=== PATIENT | female | born 1960 | race Hispanic/Latino ===

== ENCOUNTER → 2018-05-23 | Outpatient (CLI) | payer OTHER | LOC: MAMMO 08:56 | PROVIDERS: ATTEND Internal Medicine | DX: Z12.31 Encounter for screening mammogram for malignant neoplasm of breast (principal) | CPT/HCPCS: 77067 ==

== ENCOUNTER 2019-01-09 19:24 | Emergency (ER) | payer OTHER ==
[~2019-01-09] VITALS: Ht 154.9 cm; Wt 93.9 kg
--- OUTSIDE RECORDS SUMMARY | 2019-01-09 19:27 | XMS REPORT ---
Author Author [facility] Organization [facility] Address Unknown Phone Unavailable Care Team Providers Care Duty Officer Name Role Phone Susu THOMPSON Unavailable Unavailable Payers Payer Name Policy Type Policy Number Effective Date Expiration Date Problems This patient has no known problems. Allergies, Adverse Reactions, Alerts Allergy Name Allergy Type Status Severity Reaction(s) Onset Date Inactive Date Treating Clinician Comments No Known Allergies DA Active U 2011-12-20 00:00:00 Medications This patient has no known medications. Encounters Start Date/Time End Date/Time Encounter Type Admission Type Attending Clinicians Care Facility Care Department Encounter ID 2018-05-26 00:00:00 2018-05-26 00:00:00 Outpatient [facility] [id number] 2018-05-07 00:00:00 2018-05-07 00:00:00 Outpatient [facility] [id number] 2018-04-18 00:00:00 2018-04-18 00:00:00 Outpatient [facility] [id number] 2018-04-10 15:24:43 2018-04-10 15:24:43 Outpatient [facility] [id number] 2018-04-10 14:03:50 2018-04-10 14:03:50 Outpatient [facility] [id number] 2018-02-27 00:00:00 2018-02-27 00:00:00 Outpatient [facility] [id number] 2017-07-04 13:07:56 2017-07-04 13:07:56 Outpatient [facility] [id number] 2017-02-22 10:57:57 2017-02-22 10:57:57 Outpatient [facility] [id number] 2017-02-22 09:25:07 2017-02-22 09:25:07 Outpatient [facility] [id number] 2017-01-17 00:00:00 2017-01-17 00:00:00 Outpatient [facility] [id number] 2017-01-14 00:00:00 2017-01-14 00:00:00 Outpatient [facility] [id number] 2016-12-24 00:00:00 2016-12-24 00:00:00 Outpatient [facility] [id number] 2016-11-27 10:41:24 2016-11-27 10:41:24 Outpatient [facility] [id number] 2016-11-09 09:36:55 2016-11-09 09:36:55 Outpatient [facility] [id number] 2016-11-09 09:18:55 2016-11-09 09:18:55 Outpatient [facility] [id number] 2016-11-08 09:12:17 2016-11-08 09:12:17 Outpatient [facility] [id number] 2016-11-07 12:48:15 2016-11-07 12:48:15 Outpatient [facility] [id number] Results Test Description Test Time Test Comments Text Results Atomic Results Result Comments BASIC METABOLIC PANEL 2019-01-09 00:44:00 SODIUM (test code=NA) 139 mmol/L 136-145 POTASSIUM (test code=K) 3.9 mmol/L 3.5-5.1 CHLORIDE (test code=CL) 104 mmol/L 101-109 CARBON DIOXIDE (test code=CO2) 25.7 mmol/L 21-32 ANION GAP (test code=GAP) 13 mmol/L 10-20 GLUCOSE (test code=GLU) 183 mg/dL 74-106 BLOOD UREA NITROGEN (test code=BUN) 11 mg/dL 3-21 GLOMERULAR FILTRATION RATE (test code=GFR) > 60 mL/min >=60 Estimated GFR by using Modified MDRD formula.Chronic kidney disease is defined as either kidney damageor GFR <60 mL/min/1.73 m2 for >3 months. CREATININE (test code=CREAT) 0.59 mg/dL 0.55-1.3 BUN/CREATININE RATIO (test code=BUN/CREA) 18.6 10-20 CALCIUM (test code=CA) 8.7 mg/dL 8.4-10.2 - CT HEAD/BRAIN W/O [id number] 00:42:00 Name: RAHEL SINGH [facility] : 1960 Age/S: 58 / F [address] Unit #: [id number] Loc: [place] [address] Phys: Neno Briscoe MD Acct: [id number] Dis Date: Status: REG ER PHONE #: [phone] Exam Date: 01/09/2019 0035 FAX #: [phone] Reason: HEADACHE SINCE YESTERDAY MORNING EXAMS: CPT CODE: [id number] CT HEAD/BRAIN W/O CONT 69351 DICTATION LOCATION: H48 HISTORY: Female, 58 years of age with HEADACHE SINCE YESTERDAY MORNING EXAM: CT BRAIN WITHOUT CONTRAST COMPARISON: Previous CT brain without contrast 01/03/2008, CT brain with contrast 01/18/2016 TECHNIQUE: Transaxial images were obtained through the brain without IV contrast. One or more of the following dose reduction techniques were used: Automated exposure control; adjustment of the mA and/or kV according to the patient size; and/or use of iterative reconstruction technique. FINDINGS: There is no acute intra-axial or extra-axial hemorrhage, mass, mass effect or midline shift. No acute loss of the cortical sharif/white junctions. No hydrocephalus. There is no acute calvarial fracture. Mild mucosal thickening seen in the left maxillary sinus. Other sinuses and mastoids are clear. IMPRESSION: 1. No acute intracranial pathology. 2. Mild left maxillary sinusitis. at 0042 Reported and signed by: Eboni Womack MD CC: Neno Del Castillo MD Technologist:Evon Josue CTDI: DLP: Trnscb Date/Time: 01/09/2019 (004) tLARISA Orig Print D/T: S: 01/09/2019 (0046) PAGE 1 Signed Report CBC W/AUTO [id number] 00:38:00* Test Item Value Reference Range Comments WHITE BLOOD CELL (test code=WBC) 9.0 K/mm3 4.5-12.5 RED BLOOD CELL (test code=RBC) 4.33 mill/mm3 3.7-5.2 HEMOGLOBIN (test code=HGB) 13.3 gram/dL 11.5-15.5 HEMATOCRIT (test code=HCT) 39.3 % 36.0-46.0 MEAN CELL VOLUME (test code=MCV) 90.8 fL 80-98 MEAN CELL HGB (test code=MCH) 30.7 picogram 27.0-33.0 MEAN CELL HGB CONCETRATION (test code=MCHC) 33.8 gram/dL 33.0-36.0 RED CELL DISTRIBUTION WIDTH (test code=RDW) 12.8 % 11.6-16.2 RED CELL DISTRIBUTION WIDTH SD (test code=RDW-SD) 43.3 fL 37.0-51.0 PLATELET COUNT (test code=PLT) 247 K/mm3 150-450 MEAN PLATELET VOLUME (test code=MPV) 10.1 fL 6.7-11.0 NEUTROPHIL % (test code=NT%) 62.2 % 39.0-69.0 LYMPHOCYTE % (test code=LY%) 30.0 % 25.0-55.0 MONOCYTE % (test code=MO%) 5.7 % 0.0-10.0 EOSINOPHIL % (test code=EO%) 1.4 % 0.0-5.0 BASOPHIL % (test code=BA%) 0.6 % 0.0-1.0 NEUTROPHIL # (test code=NT#) 5.59 K/mm3 1.8-7.7 LYMPHOCYTE # (test code=LY#) 2.70 K/mm3 1.0-5.0 MONOCYTE # (test code=MO#) 0.51 K/mm3 0-0.8 EOSINOPHIL # (test code=EO#) 0.13 K/mm3 0.0-0.5 BASOPHIL # (test code=BA#) 0.05 K/mm3 0.0-0.2 MANUAL DIFF REQUIRED (test code=MDIFF) NO COMPREHENSIVE METABOLIC [id number] 18:09:00* Test Item Value Reference Range Comments SODIUM (test code=NA) 141 mmol/L 136-145 POTASSIUM (test code=K) 3.9 mmol/L 3.5-5.1 CHLORIDE (test code=CL) 105 mmol/L 101-109 CARBON DIOXIDE (test code=CO2) 27.7 mmol/L 21-32 ANION GAP (test code=GAP) 12 mmol/L 10-20 GLUCOSE (test code=GLU) 136 mg/dL 74-106 BLOOD UREA NITROGEN (test code=BUN) 14 mg/dL 3-21 CREATININE (test code=CREAT) 0.59 mg/dL 0.55-1.3 BUN/CREATININE RATIO (test code=BUN/CREA) 23.7 10-20 TOTAL PROTEIN (test code=PROT) 7.3 g/dL 6.5-8.4 ALBUMIN (test code=ALB) 3.7 g/dL 3.4-4.8 GLOBULIN (test code=GLOB) 3.6 G/DL 1-10 ALBUMIN/GLOBULIN RATIO (test code=A/G) 1.03 RATIO 0.75-1.50 CALCIUM (test code=CA) 9.1 mg/dL 8.4-10.2 BILIRUBIN TOTAL (test code=BILT) 0.40 mg/dL 0.0-1.0 SGOT/AST (test code=AST) 52 U/L 6-32 SGPT/ALT (test code=ALT) 107 U/L 12-78 Note: Change in REFERENCE RANGE due to new reagent method. ALKALINE PHOSPHATASE TOTAL (test code=ALKP) 93 U/L 38-126 COMPREHENSIVE METABOLIC [id number] 18:02:00* Test Item Value Reference Range Comments SODIUM (test code=NA) 141 mmol/L 136-145 POTASSIUM (test code=K) 3.9 mmol/L 3.5-5.1 CHLORIDE (test code=CL) 105 mmol/L 101-109 CARBON DIOXIDE (test code=CO2) 27.7 mmol/L 21-32 ANION GAP (test code=GAP) 12 mmol/L 10-20 GLUCOSE (test code=GLU) 136 mg/dL 74-106 BLOOD UREA NITROGEN (test code=BUN) 14 mg/dL 3-21 CREATININE (test code=CREAT) 0.59 mg/dL 0.55-1.3 BUN/CREATININE RATIO (test code=BUN/CREA) 23.7 10-20 TOTAL PROTEIN (test code=PROT) gram/dL 6.4-8.2 ALBUMIN (test code=ALB) g/dL 3.4-5.0 GLOBULIN (test code=GLOB) g/dL 2.7-4.2 ALBUMIN/GLOBULIN RATIO (test code=A/G) 0.75-1.50 CALCIUM (test code=CA) 9.1 mg/dL 8.4-10.2 BILIRUBIN TOTAL (test code=BILT) mg/dL 0.2-1.2 SGOT/AST (test code=AST) IUnit/L 15-37 SGPT/ALT (test code=ALT) U/L 10-69 ALKALINE PHOSPHATASE TOTAL (test code=ALKP) IUnit/L 45-117 CBC W/AUTO [id number] 17:52:00* Test Item Value Reference Range Comments WHITE BLOOD CELL (test code=WBC) 9.2 K/mm3 4.5-12.5 RED BLOOD CELL (test code=RBC) 4.76 mill/mm3 3.7-5.2 HEMOGLOBIN (test code=HGB) 15.1 gram/dL 11.5-15.5 HEMATOCRIT (test code=HCT) 43.5 % 36.0-46.0 MEAN CELL VOLUME (test code=MCV) 91.4 fL 80-98 MEAN CELL HGB (test code=MCH) 31.7 picogram 27.0-33.0 MEAN CELL HGB CONCETRATION (test code=MCHC) 34.7 gram/dL 33.0-36.0 RED CELL DISTRIBUTION WIDTH (test code=RDW) 13.6 % 11.6-16.2 RED CELL DISTRIBUTION WIDTH SD (test code=RDW-SD) 46.3 fL 37.0-51.0 PLATELET COUNT (test code=PLT) 249 K/mm3 150-450 MEAN PLATELET VOLUME (test code=MPV) 9.9 fL 6.7-11.0 NEUTROPHIL % (test code=NT%) 55.9 % 39.0-69.0 LYMPHOCYTE % (test code=LY%) 36.9 % 25.0-55.0 MONOCYTE % (test code=MO%) 5.1 % 0.0-10.0 EOSINOPHIL % (test code=EO%) 1.4 % 0.0-5.0 BASOPHIL % (test code=BA%) 0.4 % 0.0-1.0 NEUTROPHIL # (test code=NT#) 5.15 K/mm3 1.8-7.7 LYMPHOCYTE # (test code=LY#) 3.41 K/mm3 1.0-5.0 MONOCYTE # (test code=MO#) 0.47 K/mm3 0-0.8 EOSINOPHIL # (test code=EO#) 0.13 K/mm3 0.0-0.5 BASOPHIL # (test code=BA#) 0.04 K/mm3 0.0-0.2 MANUAL DIFF REQUIRED (test code=MDIFF) NO URINALYSIS [id number] 19:11:00* Test Item Value Reference Range Comments UA COLOR (test code=COLU) YELLOW YELLOW UA APPEARANCE (test code=APPU) HAZY CLEAR UA GLUCOSE DIPSTICK (test code=DGLUU) norm mg/dL NEGATIVE UA BILIRUBIN DIPSTICK (test code=BILU) NEGATIVE mg/dL NEGATIVE UA KETONE DIPSTICK (test code=KETU) neg mg/dL NEGATIVE UA SPECIFIC GRAVITY (test code=SGU) 1.010 1.001-1.035 UA BLOOD DIPSTICK (test code=KIM) 50 (2+) Rolando/uL NEGATIVE UA PH DIPSTICK (test code=MISTY) 5.0 5.0-8.0 UA PROTEIN DIPSTICK (test code=PROU) 100 (2+) mg/dL Neg-15 UA UROBILINIOGEN DIPSTICK (test code=URO) norm mg/dL 0.0-0.2 UA NITRITE DIPSTICK (test code=RADHA) NEGATIVE NEGATIVE UA LEUKOCYTE ESTERASE DIPSTICK (test code=LEUU) 25 Laurita/uL (Trace) uL NEGATIVE UA WBC (test code=WBCU) 0-5 per HPF 0-5 IN SOME URINARY TRACT INFECTIONS THERE MAY NOT BE ENOUGHWBCs IN THE URINE TO TRIGGER AN AUTOMATIC (REFLEX) URINECULTURE. A SEPERATE ORDER FOR URINE CULTURE IS RECOMMENDEDIF THERE IS STRONG SUPPORT FOR A URINARY TRACT INFECTIONCLINICALLY. UA RBC (test code=RBCU) 0-2 per HPF 0-5 UA EPITHELIAL CELLS (test code=EPIU) Rare (0-1/hpf) per HPF Few UA BACTERIA (test code=BACU) TRACE per HPF NONE Urine Source? Clean CatchURINALYSIS [id number] 19:09:00* Test Item Value Reference Range Comments UA COLOR (test code=COLU) YELLOW YELLOW UA APPEARANCE (test code=APPU) HAZY CLEAR UA GLUCOSE DIPSTICK (test code=DGLUU) norm mg/dL NEGATIVE UA BILIRUBIN DIPSTICK (test code=BILU) NEGATIVE mg/dL NEGATIVE UA KETONE DIPSTICK (test code=KETU) neg mg/dL NEGATIVE UA SPECIFIC GRAVITY (test code=SGU) 1.010 1.001-1.035 UA BLOOD DIPSTICK (test code=KIM) 50 (2+) Rolando/uL NEGATIVE UA PH DIPSTICK (test code=MISTY) 5.0 5.0-8.0 UA PROTEIN DIPSTICK (test code=PROU) 100 (2+) mg/dL Neg-15 UA UROBILINIOGEN DIPSTICK (test code=URO) norm mg/dL 0.0-0.2 UA NITRITE DIPSTICK (test code=RADHA) NEGATIVE NEGATIVE UA LEUKOCYTE ESTERASE DIPSTICK (test code=LEUU) 25 Laurita/uL (Trace) uL NEGATIVE UA WBC (test code=WBCU) per HPF 0-5 UA RBC (test code=RBCU) per HPF 0-5 UA EPITHELIAL CELLS (test code=EPIU) per HPF Few UA BACTERIA (test code=BACU) per HPF NONE Urine Source? Clean Catch- XR CHEST 2 [id number] 16:39:00 Name: RAHEL SINGH [facility] : 1960 Age/S:58 /F [address] Unit#:[id number] Loc: [place] [address] Phys: Angel Gutierrez MD Dis Date: PHONE #: [phone] Status: REG ER FAX #: [phone] Exam Date: 08/13/2018 Reason: SOB EXAMS: CPT CODE: [id number] XR CHEST 2 V [id number] REASON FOR EXAM: SOB Exam Order Date: 08/13/2018 3:47 PM Ordering M.Madhavi: Angel Gutierrez MD PROCEDURE: - XR CHEST 2 V COMPARISON: FINDINGS: PA and lateral views of the chest show clear lungs without evidence of consolidation. No evidence of effusion. The heart size is within normal limits. Pulmonary vasculatures are unremarkable. The osseous structures are grossly intact. IMPRESSION: No active disease. at 1639 Reported and signed by: Papito Cortez M.D. CC: Angel Gutierrez MD Technologist: BIANCA NICE, RT(R),CT Trnscrpt Data: 08/13/2018 (163) Roney Orig Print D/T: S: 08/13/2018 (5770) PAGE 1 Signed Report COMPREHENSIVE METABOLIC [id number] 16:24:00* Test Item Value Reference Range Comments SODIUM (test code=NA) 138 mmol/L 135-148 POTASSIUM (test code=K) 3.8 mmol/L 3.5-5.1 CHLORIDE (test code=CL) 100 mmol/L 101-109 CARBON DIOXIDE (test code=CO2) 29.1 mmol/L 21-32 ANION GAP (test code=GAP) 13 mmol/L 10-20 GLUCOSE (test code=GLU) 182 mg/dL 74-106 BLOOD UREA NITROGEN (test code=BUN) 11 mg/dL 3-21 CREATININE (test code=CREAT) 0.70 mg/dL 0.55-1.3 BUN/CREATININE RATIO (test code=BUN/CREA) 15.7 10-20 TOTAL PROTEIN (test code=PROT) 7.8 g/dL 6.5-8.4 ALBUMIN (test code=ALB) 3.5 g/dL 3.4-4.8 GLOBULIN (test code=GLOB) 4.3 G/DL 1-10 ALBUMIN/GLOBULIN RATIO (test code=A/G) 0.8 RATIO 0.75-1.50 CALCIUM (test code=CA) 9.7 mg/dL 8.4-10.2 BILIRUBIN TOTAL (test code=BILT) 0.40 mg/dL 0.0-1.0 SGOT/AST (test code=AST) 49 U/L 6-32 SGPT/ALT (test code=ALT) 97 U/L 12-78 Note: Change in REFERENCE RANGE due to new reagent method. ALKALINE PHOSPHATASE TOTAL (test code=ALKP) 98 U/L 38-126 [id number] 16:24:00* Test Item Value Reference Range Comments TROPONIN-I (test code=TROPI) <0.015 ng/mL 0.00-0.056 B-TYPE NATRIURETIC [id number] 16:09:00* Test Item Value Reference Range Comments B-TYPE NATRIURETIC PEPTIDE (test code=BNP) 43.4 pg/mL 0-100 COMPREHENSIVE METABOLIC [id number] 16:02:00* Test Item Value Reference Range Comments SODIUM (test code=NA) 138 mmol/L 135-148 POTASSIUM (test code=K) 3.8 mmol/L 3.5-5.1 CHLORIDE (test code=CL) 100 mmol/L 101-109 CARBON DIOXIDE (test code=CO2) 29.1 mmol/L 21-32 ANION GAP (test code=GAP) 13 mmol/L 10-20 GLUCOSE (test code=GLU) 182 mg/dL 74-106 BLOOD UREA NITROGEN (test code=BUN) 11 mg/dL 3-21 CREATININE (test code=CREAT) 0.70 mg/dL 0.55-1.3 BUN/CREATININE RATIO (test code=BUN/CREA) 15.7 10-20 TOTAL PROTEIN (test code=PROT) gram/dL 6.4-8.2 ALBUMIN (test code=ALB) g/dL 3.4-5.0 GLOBULIN (test code=GLOB) g/dL 2.7-4.2 ALBUMIN/GLOBULIN RATIO (test code=A/G) 0.75-1.50 CALCIUM (test code=CA) 9.7 mg/dL 8.4-10.2 BILIRUBIN TOTAL (test code=BILT) mg/dL 0.2-1.2 SGOT/AST (test code=AST) IUnit/L 15-37 SGPT/ALT (test code=ALT) U/L 10-69 ALKALINE PHOSPHATASE TOTAL (test code=ALKP) IUnit/L 45-117 [id number] 16:02:00* Test Item Value Reference Range Comments TROPONIN-I (test code=TROPI) ng/mL 0-0.045 CBC W/AUTO [id number] 15:53:00* Test Item Value Reference Range Comments WHITE BLOOD CELL (test code=WBC) 10.3 K/mm3 4.5-12.5 RED BLOOD CELL (test code=RBC) 4.65 mill/mm3 3.7-5.2 HEMOGLOBIN (test code=HGB) 14.7 gram/dL 11.5-15.5 HEMATOCRIT (test code=HCT) 43.2 % 36.0-46.0 MEAN CELL VOLUME (test code=MCV) 92.9 fL 80-98 MEAN CELL HGB (test code=MCH) 31.6 picogram 27.0-33.0 MEAN CELL HGB CONCETRATION (test code=MCHC) 34.0 gram/dL 33.0-36.0 RED CELL DISTRIBUTION WIDTH (test code=RDW) 14.2 % 11.6-16.2 RED CELL DISTRIBUTION WIDTH SD (test code=RDW-SD) 46.8 fL 39.1-52.0 PLATELET COUNT (test code=PLT) 224 K/mm3 150-450 MEAN PLATELET VOLUME (test code=MPV) 9.8 fL 6.7-11.0 NEUTROPHIL % (test code=NT%) 62.2 % 39.0-69.0 LYMPHOCYTE % (test code=LY%) 26.9 % 25.0-55.0 MONOCYTE % (test code=MO%) 8.4 % 0.0-10.0 EOSINOPHIL % (test code=EO%) 2.0 % 0.0-5.0 BASOPHIL % (test code=BA%) 0.5 % 0.0-1.0 NEUTROPHIL # (test code=NT#) 6.41 K/mm3 1.8-7.7 LYMPHOCYTE # (test code=LY#) 2.78 K/mm3 1.0-5.0 MONOCYTE # (test code=MO#) 0.87 K/mm3 0-0.8 EOSINOPHIL # (test code=EO#) 0.21 K/mm3 0.0-0.5 BASOPHIL # (test code=BA#) 0.05 K/mm3 0.0-0.2 MANUAL DIFF REQUIRED (test code=MDIFF) NO MAMMOGRAPHY DIGITAL SCR [id number] 09:56:00 [place] [address] Patient Name: RAHEL SINGH MR #: [id number] : 1960 Age/Sex: 58/F Req #: [id number] Adm Physician: Ordered by: ANETTE THOMPSON MD Report #: [id number] Location: [facility] Room/Bed: Procedure: [id number] MG/NELLIE MOGRAPHY DIGITAL SCR BILAT Exam Date: 05/23/18 Exam Time: 929 REPORT STATUS: Signed #[id number] - [id number] #BILATERAL DIGITAL SCREENING MAMMOGRAM WITH CAD: 05/23/2018 CLINICAL: Routine screening. Comparison is made to exams ramesh ed: 02/10/2014 mammogram, 02/10/2014 ultrasound and 03/12/2013 mammogram - [facility]. Current study contains 4 films. There are scattered fibroglandular elements in both breasts. Current study was also evaluated with a Computer Aided Detection (CAD) system. There are benign calcifications in both breast s. No significant masses, calcifications, or other findings are seen in eith er breast. There has been no significant interval change. IMPRESSION: B ENIGN There is no mammographic evidence of malignancy. A 1 year screening nellie mogram is recommended. The patient will be notified by letter of the results. 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 ter letter sent: Compared to Prior B9 Mammogram BI-RADS: 2 Benign Dict ated By: FRANK PURI DO 08 COPY TO: ANETTE THOMPSON
--- OUTSIDE RECORDS SUMMARY | 2019-01-09 19:27 | XMS REPORT | Clinical Summary ---
Author Author [facility] Organization [facility] Address Unknown Phone Unavailable Care Team Providers Care Chief Yeoman Name Role Phone Preet Zamudio MD PCP Allergies No Known Allergies Medications End Date Status Medication Sig Dispensed Refills Start Date Active blood glucose (PRECISION check 2 times 50 Each XTRA TEST STRIPS) test weekly to 7 stripsIndications: Type 2 test blood diabetes mellitus with sugar. complication, without long-term current use of insulin Active lancets 28 2 times 100 Each gaugeIndications: Type 2 weekly use to 7 diabetes mellitus with check blood complication, without sugar long-term current use of insulin Active blood glucose meter For glucose. 1 Kit 0 (PRECISION XTRA 7 GLUCOMETER)Indications: Type 2 diabetes mellitus with complication, without long-term current use of insulin Active benzonatate (TESSALON Take 1 45 capsule 0 PERLES) 100 mg capsule by 7 capsuleIndications: RAD mouth 3 times (reactive airway daily as disease), mild needed for intermittent, with acute Cough. exacerbation Active Comp.Stocking,Thigh,Long, by 2 Box 0 X-Lrg MiscIndications: Misc.(Non-Kenny 7 Varicose vein of leg g; Combo Route) route For varicose veins. Active piroxicam (FELDENE) 10 mg Take 1 90 capsule 1 capsuleIndications: capsule by 7 Arthritis involving mouth daily multiple sites TAKE WITH FOOD.. Active Desloratadine (CLARINEX) Take 1 tablet 30 tablet 1 5 mg tabletIndications: by mouth 8 Chronic allergic daily. rhinitis, unspecified seasonality, unspecified trigger Active azithromycin (ZITHROMAX) Take 2 6 tablet 0 250 mg tabletIndications: tablets by 8 Upper respiratory tract mouth on the infection, unspecified first day, type then take one tablet every day for the next 4 days. Active glipiZIDE (GLUCOTROL) 5 Take 1 tablet 180 tablet 3 mg tabletIndications: by mouth 2 8 Type 2 diabetes mellitus times daily with complication, (before without long-term current meals) For use of insulin diabetes. Active metFORMIN (GLUCOPHAGE) Take 1 tablet 180 tablet 3 1,000 mg by mouth 2 8 tabletIndications: Type 2 times daily diabetes mellitus with (with meals) complication, without For diabetes. long-term current use of insulin Active cilostazol (PLETAL) 100 Take 1 tablet 180 tablet 3 mg tabletIndications: PAD by mouth 2 8 (peripheral artery times daily disease) For circulation. Active ciclesonide (ZETONNA) 37 Use 1 [place] 6.1 g 1 mcg/actuation nasal HFA in each 8 inhalerIndications: Upper nostril respiratory tract daily. infection, unspecified type Active albuterol 90 Inhale 2 20.1 g 6 mcg/actuation Puffs by 8 inhalerIndications: RAD mouth 4 times (reactive airway daily as disease), mild needed for intermittent, with acute Wheezing or exacerbation Shortness of Breath (or chest tightness). Active codeine-guaiFENesin Take 5 mL by 120 mL 0 (CHERATUSSIN AC) 10-100 mouth 3 times 8 mg/5 mL syrupIndications: daily as Upper respiratory tract needed for infection, unspecified Cough. type Active loratadine (CLARITIN) 10 Take 1 tablet 60 tablet 6 mg tabletIndications: by mouth 8 Chronic seasonal allergic daily For rhinitis allergies as needed. 04/10/2018 Discontinued albuterol (VENTOLIN Inhale 2 20.1 g 6 HFA,PROVENTIL HFA,PROAIR Puffs by 7 HFA) 90 mcg/actuation mouth 4 times inhalerIndications: RAD daily as (reactive airway needed for disease), mild Wheezing or intermittent, with acute Shortness of exacerbation, Wheezing Breath (or chest tightness). 04/10/2018 Discontinued glipiZIDE (GLUCOTROL) 5 Take 1 tablet 180 tablet 3 mg tabletIndications: by mouth 2 7 Controlled type 2 times daily diabetes mellitus without (before complication, without meals) For long-term current use of diabetes. insulin 04/10/2018 Discontinued metFORMIN (GLUCOPHAGE) Take 1 tablet 180 tablet 3 1,000 mg by mouth 2 7 tabletIndications: times daily Controlled type 2 (with meals) diabetes mellitus without For diabetes. complication, without long-term current use of insulin 04/10/2018 Discontinued cilostazol (PLETAL) 100 Take 1 tablet 180 tablet 3 mg tabletIndications: PAD by mouth 2 7 (peripheral artery times daily disease) For circulation. 04/10/2018 Discontinued loratadine (CLARITIN) 10 Take 1 tablet 60 tablet 6 mg tabletIndications: by mouth 7 Chronic seasonal allergic daily For rhinitis, unspecified allergies as trigger needed. 04/10/2018 Discontinued fluticasone (FLONASE) 50 Use 2 Sprays 16 g 3 mcg/actuation nasal in each 7 sprayIndications: Chronic nostril seasonal allergic daily. rhinitis, unspecified trigger 04/10/2018 Discontinued ciclesonide (ZETONNA) 37 Use 1 [place] 6.1 g 1 mcg/actuation nasal HFA in each 8 inhalerIndications: nostril Chronic allergic daily. rhinitis, unspecified seasonality, unspecified trigger 10/08/2018 tropicamide (MYDRIACYL) Instill 1 15 mL 0 0.5 % ophthalmic Drop in each 8 solutionIndications: Type eye once as 2 diabetes mellitus with needed for up complication, without to 1 dose long-term current use of (for poor insulin retina scan image). 04/10/2018 Discontinued codeine-guaiFENesin Take 5 mL by 120 mL 0 (CHERATUSSIN AC) 10-100 mouth 3 times 8 mg/5 mL syrupIndications: daily as Upper respiratory tract needed for infection, unspecified Cough. 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 Neck pain Encounters Care Team Description Date Type Specialty Boni Villarreal MD Type 2 diabetes mellitus with complication, without long-term current use of insulin (Primary Dx); Upper respiratory tract infection, unspecified type; PAD (peripheral artery disease); Flu vaccine need; Need for Tdap vaccination; Colon cancer screening; Breast cancer screening; RAD (reactive airway disease), mild intermittent, with acute exacerbation; Encounter for diabetic foot exam 04/10/2018 Office Visit [facility] Tian Early Jr., MD Chronic seasonal allergic rhinitis 04/10/2018 Refill [facility] Tian Early Jr., MD Controlled type 2 diabetes mellitus without complication, without long-term current use of insulin; PAD (peripheral artery disease) 04/01/2018 Refill Family Practice after 01/08/2018 Immunizations Name Administration Dates Next Due Influenza <Unspecified> 05/16/2016 Influenza Vaccine 07/09/2016 (Deferred: Other) Influenza Vaccine, 07/04/2017 (Deferred: Contraindication) Seasonal, Injectable Influenza, 04/10/2018 (Deferred: W/O Fever for 72 hours) Vaccine<FLUCELVAX>(Multi- Dose) PNEUMOCOCCAL 23-VALPS 07/09/2016 (Deferred: Patient Refused) VACCINE 25 MCG/0.5 ML INJECTION PPV 23 Pneumococcal 07/16/2016 Polysaccaride Tdap (Tetanus Toxoid, 04/10/2018 (Deferred: W/O Fever for 72 hours) Reduced Diphtheria Toxoid And Acellular Pertussis, Absorbed) Family History Medical History Relation Name Comments Alcohol/Drug Brother Cancer Maternal Stomache cancer Grandmother Diabetes Mother Relation Name Status Comments Brother Alive Maternal Grandmother Mother Social History Date Tobacco Use Types Packs/Day Years Used Quit: 06/14/1996 Former Smoker Cigarettes Smokeless Tobacco: Never Used Tobacco Cessation: Counseling Given: No Drinks/Week oz/Week Comments Alcohol Use No Food Insecurity Answer Date Recorded Within the past 12 months, you worried that your Never true 04/10/2018 food would run out before you got money to buy more. Within the past 12 months, the food you bought Never true 04/10/2018 just didn't last and you didn't have money to get more. Sex Assigned at Date Recorded Not on file Industry Job Start Date Occupation Not on file Not on file Not on file Travel End Travel History Travel Start No recent travel history available. Last Filed Vital Signs Reading Time Taken Comments Vital Sign 117/83 04/10/2018 2:04 PM WIENER PACKER Blood Pressure 99 04/10/2018 2:04 PM WIENER PACKER Pulse 37.3 C (99.2 F) 04/10/2018 2:04 PM WIENER PACKER Temperature 18 04/10/2018 2:04 PM WIENER PACKER Respiratory Rate 99% 04/10/2018 2:04 PM WIENER PACKER on room air Oxygen Saturation - - Inhaled Oxygen Concentration 95.3 kg (210 lb) 04/10/2018 2:04 PM WIENER PACKER Weight 157.5 cm (5' 2") 04/10/2018 2:04 PM WIENER PACKER Height 38.41 04/10/2018 2:04 PM WIENER PACKER Body Mass Index Plan of Treatment Health Maintenance Due Date Last Done Comments DM Microalbumin Urine 06/14/2017 06/14/2016, 05/17/2005, 12/30/2003 Scrn (Yearly) Colorectal Cancer Scrn 06/28/2017 06/28/2016 Annual (FIT/FOBT) Age 50 to 75 Breast Cancer Scrn 07/11/2017 07/11/2016 (Yearly) DM Retinal Exam (Yearly) 07/12/2017 07/12/2016 DM HGBA1C (Yearly) 02/22/2018 02/22/2017, 11/09/2016, 08/27/2016, Additional history exists IMM Influenza Seasonal 01/27/2019 05/16/2016 Oct to June (>/=19 yrs) DM Foot Exam (Yearly) 04/10/2019 04/10/2018, 02/22/2017 Cervical Cancer Scrn (3 11/09/2019 11/08/2016 Yrs) Procedures Comments Procedure Name Priority Date/Time Associated Diagnosis DIABETIC FOOT EXAM Routine 04/10/2018 Encounter for diabetic 2:48 PM WIENER PACKER foot exam after 01/08/2018 Results * DIABETIC FOOT EXAM (04/10/2018 2:48 PM WIENER PACKER) Narrative Performed At Boni Villarreal MD 04/10/20183:17 PM Diabetic Foot Exam was performed at 04/10/2018 2:59 PM.Right foot sensation is normal, right foot pulses are normal, right foot appearance is normal.Left foot sensation is normal,left foot pulses are normal, left foot appearance is normal. after 01/08/2018 Insurance Type Payer Benefit Subscriber ID Effective Phone Address Plan / Dates Group [employer]IRIN [employer] xxxxxxxxxx 2018-P [phone] [address] [place] [address] [place] [address]
[2019-01-09] MEDS ORDERED: IBUPROFEN 400 MG TAB PO STA (20:16)
--- NOTE | 2019-01-09 20:51 | Diagnostic Imaging Report ---
EXAM: PA and lateral views of the chest. COMPARISON: None CLINICAL HISTORY: ^[id number] ^2014 FINDINGS: Lines/tubes: None. Lungs: The lungs are well inflated and clear. Pleura: There is no pleural effusion or pneumothorax. Heart and mediastinum: The cardiomediastinal silhouette is normal. Bones and soft tissues: Mild multilevel degenerative changes of the thoracic spine. IMPRESSION: No acute cardiopulmonary abnormalities. Signed by: Dr. Cleo Camacho M.D. on 01/09/2019 8:47 PM
[2019-01-09] MEDS ORDERED: SODIUM CHLORIDE 0.9% 50ML 50 ML ONE (21:00)
[2019-01-09] MEDS ORDERED: IOPAMIDOL 370 MG/ML 200 ML INFUS..BTL INJ ONE (21:00)
[2019-01-09] MEDS ORDERED: IBUPROFEN 200 MG TAB ONE (21:07)
--- NOTE | 2019-01-09 21:13 | Diagnostic Imaging Report ---
History: Chest pain, headaches Comparison studies: None Technique: Axial images were obtained from the skull base to the vertex. Coronal and sagittal reconstructions obtained from the axial data. Dose modulation, iterative reconstruction, and/or weight based adjustment of the mA/kV was utilized to reduce the radiation dose to as low as reasonably achievable. Findings: Scalp/skull: No abnormalities. No fractures, blastic or lytic lesions. Extra-axial spaces: No masses. No fluid collections. Brain sulci: Appropriate for age. Ventricles: Normal in size and configuration. No hydrocephalus. Parenchyma: No abnormal densities. No masses, hemorrhage, acute or chronic cortical vascular insults. Sellar/suprasellar region: No abnormalities Craniocervical junction: Patent foramen magnum. No Chiari one malformation. IMPRESSION: No abnormalities . Signed by: DR Chad Gaona M.D. on 01/09/2019 9:10 PM
[2019-01-09] MEDS ORDERED: TRAMADOL HCL 50 MG TAB PO ONE (21:36)
[2019-01-09] MEDS ORDERED: TRAMADOL HCL 50 MG TAB ONE (21:45)
[2019-01-09] MEDS ORDERED: MORPHINE SULFATE 2 MG/ML SYR 1ML IV STA (22:44)
[2019-01-09] MEDS ORDERED: ONDANSETRON HCL INJ 2MG/ML 2ML 2 MG/ML VIAL IV STA (22:44)
[2019-01-09] MEDS ORDERED: MORPHINE SULFATE INJ 4 MG/ML INJ 1ML ONE (22:52)
[2019-01-09] MEDS ORDERED: ONDANSETRON HCL INJ 2MG/ML 2ML 2 MG/ML VIAL ONE (22:52)
--- NOTE | 2019-01-09 23:20 | Diagnostic Imaging Report ---
EXAM: CT Chest WITH contrast (PE Protocol) INDICATION: Chest pain COMPARISON: None TECHNIQUE: Chest was scanned utilizing a multidetector helical scanner from the lung apex through the level of the diaphragm after administration of IV contrast. Thin section reconstructions were obtained with special concentration on the pulmonary arteries. Coronal and sagittal reformations were obtained. Pulmonary embolism protocol was performed. IV CONTRAST: 100 mL of Isovue 370 COMPLICATIONS: None RADIATION DOSE: Total DLP: 572 mGy*cm Estimated effective dose: (DLP x 0.014 x size factor) mSv CTDIvol has been reviewed. It is below the limits set by the Radiation Protocol Committee (RPC). Dose modulation, iterative reconstruction, and/or weight based adjustment of the mA/kV was utilized to reduce the radiation dose to as low as reasonably achievable. FINDINGS: LINES/ TUBES: None. LUNGS AND AIRWAYS: No filling defect is identified within the pulmonary arteries to the segmental level. Low lung volumes with mosaic attenuation, likely related to end-expiratory scan timing. Airways are normal. PLEURA: The pleural spaces are clear. HEART AND MEDIASTINUM: The thyroid gland is normal. No mediastinal, hilar or axillary lymphadenopathy. The heart is normal in size. There is no pericardial effusion. Main pulmonary artery measures 2.8 cm in diameter, nondilated, and the ascending aorta measures 3 cm., Normal UPPER ABDOMEN: Unremarkable BONES: There are degenerative changes in the thoracic spine. SOFT TISSUES: Unremarkable. IMPRESSION: No pulmonary emboli. No acute CT abnormalities in the chest. Signed by: Eleuterio Aguayo DO on 01/09/2019 11:16 PM
[2019-01-09 23:34] VITALS: BP 122/77
[2019-01-09] MEDS ORDERED: ASPIRIN 81 MG CHEW TAB PO STA (23:45)
[2019-01-09] MEDS ORDERED: ASPIRIN 81 MG CHEW TAB ONE (23:49)
== END 2019-01-09 23:51 | disposition home or self-care (01) ==
LOC: FSED 19:24
DX: R07.89 Other chest pain (principal); R06.00 Dyspnea, unspecified; G44.211 Episodic tension-type headache, intractable; E11.9 Type 2 diabetes mellitus without complications; I73.9 Peripheral vascular disease, unspecified
CPT/HCPCS: 36415; 70450; 71046; 71260; 85651; 93005; 99284; J2270; J2405; Q9967

== ENCOUNTER 2019-01-10 12:22 | Inpatient (IN) | payer OTHER ==
[~2019-01-10] VITALS: Ht 154.9 cm; Wt 93.2 kg
--- OUTSIDE RECORDS SUMMARY | 2019-01-10 12:25 | XMS REPORT | Clinical Summary ---
Author Author [facility] Organization [facility] Address Unknown Phone Unavailable Care Team Providers Care Electronic Device Repairer Name Role Phone Preet Zamudio MD PCP [...] circulation. Active ciclesonide (ZETONNA) 37 Use 1 [place] 6.1 g 1 mcg/actuation nasal HFA in [...] 04/10/2018 Discontinued ciclesonide (ZETONNA) 37 Use 1 [place] 6.1 g 1 mcg/actuation nasal HFA in [...] for diabetic foot exam 04/10/2018 Office Visit [facility] Tian Early Jr., MD Chronic seasonal allergic rhinitis 04/10/2018 Refill [facility] Tian Early Jr., MD Controlled type 2 diabetes mellitus without complication, without long-term current use of insulin; PAD (peripheral artery disease) 04/01/2018 Refill Family Practice after 01/09/2018 Immunizations Name Administration Dates Next Due Influenza [...] Comments Vital Sign 117/83 04/10/2018 2:04 PM COMPUTER SUPPORT ANALYST Blood Pressure 99 04/10/2018 2:04 PM COMPUTER SUPPORT ANALYST Pulse 37.3 C (99.2 F) 04/10/2018 2:04 PM COMPUTER SUPPORT ANALYST Temperature 18 04/10/2018 2:04 PM COMPUTER SUPPORT ANALYST Respiratory Rate 99% 04/10/2018 2:04 PM COMPUTER SUPPORT ANALYST on room air Oxygen Saturation - - Inhaled Oxygen Concentration 95.3 kg (210 lb) 04/10/2018 2:04 PM COMPUTER SUPPORT ANALYST Weight 157.5 cm (5' 2") 04/10/2018 2:04 PM COMPUTER SUPPORT ANALYST Height 38.41 04/10/2018 2:04 PM COMPUTER SUPPORT ANALYST Body Mass Index Plan of Treatment Health [...] Routine 04/10/2018 Encounter for diabetic 2:48 PM COMPUTER SUPPORT ANALYST foot exam after 01/09/2018 Results * DIABETIC FOOT EXAM (04/10/2018 2:48 PM COMPUTER SUPPORT ANALYST) Narrative Performed At Boni Villarreal MD 04/10/20183:17 PM Diabetic Foot Exam was performed at 04/10/2018 2:59 PM.Right foot sensation is normal, right foot pulses are normal, right foot appearance is normal.Left foot sensation is normal,left foot pulses are normal, left foot appearance is normal. after 01/09/2018 Insurance Type Payer Benefit Subscriber ID Effective Phone Address Plan / Dates Group [employer]IRIN [employer] xxxxxxxxxx 2018-P [phone] [address] [facility] [address] [place] [address]
[2019-01-10] MEDS ORDERED: SODIUM CHLORIDE 0.9% 1000ML 1,000 ML IV SCH (13:15)
--- NOTE | 2019-01-10 13:41 | Diagnostic Imaging Report ---
Examination: Head CT without contrast. History: Persistent headache Comparison studies: CT head 01/09/2019 Technique: Axial images were obtained from the skull base to the vertex. Coronal and sagittal reconstructions obtained from the axial data. Dose modulation, iterative reconstruction, and/or weight based adjustment of the mA/kV was utilized to reduce the radiation dose to as low as reasonably achievable. Findings: Scalp/skull: No abnormalities. No fractures, blastic or lytic lesions. Extra-axial spaces: No masses. No fluid collections. Brain sulci: Appropriate for age. Ventricles: Normal in size and configuration. No hydrocephalus. Parenchyma: No abnormal densities. No masses, hemorrhage, acute or chronic cortical vascular insults. Sellar/suprasellar region: No abnormalities Craniocervical junction: Patent foramen magnum. No Chiari one malformation. IMPRESSION: No intracranial abnormalities, unchanged compared to head CT of 01/09/2019. The images and preliminary report provided by the neuroradiology fellow were reviewed and a final report issued by Dr. Marin neuroradiology faculty on 01/10/2019 at 4:50 PM. Signed by: Dr. Tara Hylton M.D. on 01/10/2019 4:51 PM
[2019-01-10] MEDS ORDERED: ONDANSETRON HCL INJ 2MG/ML 2ML 2 MG/ML VIAL IV ONE (14:00)
--- NOTE | 2019-01-10 14:11 | Diagnostic Imaging Report ---
EXAM: CT Abdomen and Pelvis WITHOUT contrast INDICATION: Abdominal pain COMPARISON: CT chest 01/13/2019 TECHNIQUE: Abdomen and pelvis were scanned utilizing a multidetector helical scanner from the lung base to the pubic symphysis without administration of IV contrast. Absence of intravenous contrast decreases sensitivity for detection of focal lesions and vascular pathology. Coronal and sagittal reformations were obtained. Routine protocol was performed. IV CONTRAST: None. ORAL CONTRAST: None RADIATION DOSE: Total DLP: 799.98 mGy*cm Estimated effective dose: (DLP x 0.015 x size factor) mSv COMPLICATIONS: None FINDINGS: LINES and TUBES: None. LOWER THORAX: Unremarkable HEPATOBILIARY: Hepatic steatosis. No focal hepatic lesions. No biliary ductal dilation. GALLBLADDER: Hyperdense material in gallbladder due to retained contrast from yesterday CT chest. No radio-opaque stones or sludge. No wall thickening. SPLEEN: No splenomegaly. PANCREAS: No focal masses or ductal dilatation. ADRENALS: No adrenal nodules KIDNEYS/URETERS: No hydronephrosis. No cystic or solid mass lesions. No stones. GI TRACT: No abnormal distention, wall thickening, or evidence of bowel obstruction. Mild scattered diverticulosis throughout the sigmoid colon with surrounding fat stranding, better seen on series 2, image 72, consistent with mild acute diverticulitis. No surrounding fluid collections, free air, or abscess. Appendix is normal. PELVIC ORGANS/BLADDER: Unremarkable. LYMPH NODES: No lymphadenopathy. VESSELS: Unremarkable. PERITONEUM / RETROPERITONEUM: No free air or fluid. BONES: Mild degenerative changes of the lower thoracic and upper lumbar spine. SOFT TISSUES: Unremarkable. IMPRESSION: Mild acute noncomplicated diverticulitis of the sigmoid colon. Signed by: Dr. Cleo Camacho M.D. on 01/10/2019 2:08 PM
[2019-01-10] MEDS ORDERED: KETOROLAC TROMETHAMINE 30 MG/ML VIAL IV STA (14:20)
[2019-01-10] MEDS ORDERED: PIPER-TAZ 3.375 GM 50 ML IV ONE (14:30)
[2019-01-10] MEDS ORDERED: MORPHINE SULFATE INJ 4 MG/ML INJ 1ML IV PRN ×2 (15:00→20:45)
[2019-01-10] MEDS ORDERED: PIPER-TAZ 3.375 GM 50 ML ONE (15:06)
[2019-01-10] MEDS ORDERED: KETOROLAC TROMETHAMINE 30 MG/ML VIAL ONE (15:06)
[2019-01-10] MEDS ORDERED: DEXTROSE 50% SYRINGE 50 ML IV PRN (15:15)
--- OUTSIDE RECORDS SUMMARY | 2019-01-10 15:26 | XMS REPORT | Clinical Summary ---
Author Author [facility] Organization [facility] Address Unknown Phone Unavailable Care Team Providers Care Principal Examiner Name Role Phone Preet Zamudio MD PCP [...] circulation. Active ciclesonide (ZETONNA) 37 Use 1 [place] 6.1 g 1 mcg/actuation nasal HFA in [...] 04/10/2018 Discontinued ciclesonide (ZETONNA) 37 Use 1 [place] 6.1 g 1 mcg/actuation nasal HFA in [...] for diabetic foot exam 04/10/2018 [facility] Chronic seasonal allergic rhinitis 04/10/2018 [facility]ill [facility] Tian Early Jr., MD Controlled [...] Comments Vital Sign 117/83 04/10/2018 2:04 PM PICKLING MACHINE OPERATOR Blood Pressure 99 04/10/2018 2:04 PM PICKLING MACHINE OPERATOR Pulse 37.3 C (99.2 F) 04/10/2018 2:04 PM PICKLING MACHINE OPERATOR Temperature 18 04/10/2018 2:04 PM PICKLING MACHINE OPERATOR Respiratory Rate 99% 04/10/2018 2:04 PM PICKLING MACHINE OPERATOR on room air Oxygen Saturation - - Inhaled Oxygen Concentration 95.3 kg (210 lb) 04/10/2018 2:04 PM PICKLING MACHINE OPERATOR Weight 157.5 cm (5' 2") 04/10/2018 2:04 PM PICKLING MACHINE OPERATOR Height 38.41 04/10/2018 2:04 PM PICKLING MACHINE OPERATOR Body Mass Index Plan of Treatment Health [...] Routine 04/10/2018 Encounter for diabetic 2:48 PM PICKLING MACHINE OPERATOR foot exam after 01/09/2018 Results * DIABETIC FOOT EXAM (04/10/2018 2:48 PM PICKLING MACHINE OPERATOR) Narrative Performed At Boni Villarreal MD 04/10/20183:17 PM Diabetic Foot Exam was performed at 04/10/2018 2:59 PM.Right foot sensation is normal, right foot pulses are normal, right foot appearance is normal.Left foot sensation is normal,left foot pulses are normal, left foot appearance is normal. after 01/09/2018 Insurance Type Payer Benefit Subscriber ID Effective Phone Address Plan / Dates Group SHIRIN [employer] xxxxxxxxxx 2018-P [phone] [address] [facility] [address] [place] [address]
[2019-01-10] MEDS: SODIUM CHLORIDE 0.9% 1000ML 1,000 ML IV SCH ×2 (17:12→22:58)
[2019-01-10] MEDS ORDERED: SODIUM CHLORIDE 0.9% 1000ML 1,000 ML ONE (17:15)
[2019-01-10] MEDS ORDERED: MORPHINE SULFATE INJ 4 MG/ML INJ 1ML ONE (17:17)
[2019-01-10] MEDS: INSULIN REGULAR, HUMAN 100 UNIT/1 ML 3ML VIAL SQ SCH ×2 (17:19→20:34)
--- NOTE | 2019-01-10 17:41 | NUR ---
Report called to FRANCHESKA Enriquez
--- NOTE | 2019-01-10 17:42 | NUR ---
[facility] called for transport
--- NOTE | 2019-01-10 19:45 | NUR ---
ARRIVED BY EMS STRETCHER TO ROOM 112. PT AMBULATORY TO HOSPITAL BED, PT IS AAOX3, RR EVEN AND NON-LABORED, ON ROOM AIR. PT REPORTS HEADACHE AT THIS TIME. ORIENTED PT TO HOSPITAL ROOM, CALL LIGHT, PHONE, BED CONTROLS AND LIGHTS. LEFT PT LAYING SEMI FOWLERS IN BED, BED IN LOW LOCKED POSITION, SIDE RAILS UPX2, CALL LIGHT AND PHONE WITHIN REACH.
[2019-01-10 20:00] VITALS: BP 142/74
--- NOTE | 2019-01-10 20:36 | NUR ---
MD Edy QUINTANA PAGED FOR CONSULTATION. WAITING FOR CALLBACK.
--- NOTE | 2019-01-10 20:43 | NUR ---
PAGE PLACED FOR MD GERMAIN CONCERNING CONSULTATION. WAITING FOR CALLBACK.
[2019-01-10 22:00] VITALS: BP 142/74
[2019-01-10] MEDS: METRONIDAZOLE 500MG/NS 100ML 100 ML IV SCH (22:00)
--- NOTE | 2019-01-10 22:21 | History and Physical ---
CHIEF COMPLAINT: 1. Severe headache and dizziness. 2. Abdominal pain. HISTORY OF PRESENT ILLNESS: This is a 58-year-old female with past medical history of diabetes mellitus and peripheral arterial disease, was in her usual state of health until started developing severe headache for last 3 days. No blurring of vision. No focal weakness. No seizures. Headache did not subside, so she went to the ER twice. So, the patient finally was admitted and Neuro consult was obtained with Dr. Miranda Santiago. CT of the head in the ER was negative. The patient also has some abdominal pain and constipation. The patient has a left lower quadrant abdominal pain. No chest pain. No shortness of breath. No leg pain. No leg swelling. ALLERGIES: NO KNOWN DRUG ALLERGIES. PAST MEDICAL HISTORY: Diabetes mellitus type 2 and PAD. PAST SURGICAL HISTORY: History of and left leg varicose veins surgery. SOCIAL HISTORY: The patient lives with her granddaughter in [place]. HABITS: Denies smoking. Denies alcohol use. Denies illicit drug use. MEDICATIONS: Glipizide and metformin for diabetes. FAMILY HISTORY: Noncontributory. REVIEW OF SYSTEMS: GENERAL: Denies fatigue and weakness. HEENT: No diplopia or blurred vision. CARDIOPULMONARY: No chest pain. No syncopal. ALIMENTARY SYSTEM: Has abdominal pain and constipation. No nausea. No vomiting. GENITOURINARY SYSTEM: No dysuria. No hematuria. MUSCULOSKELETAL: No joint pain. CENTRAL NERVOUS SYSTEM: No focal weakness. PHYSICAL EXAMINATION: GENERAL: This is a 58-year-old female, who is alert and oriented x3, in no gross distress. VITAL SIGNS: Temperature 97.4, pulse 60, respiratory rate 18, blood pressure 118/68. HEENT: Head is atraumatic and normocephalic. Pupils are bilaterally equal and reactive to light. Extraocular muscles are intact. NECK: Supple. No JVD. No carotid bruit. LUNGS: Clear to auscultation and percussion bilaterally. No added sounds. HEART: S1 and S2. Regular rate and rhythm. No S3, S4, or murmur. ABDOMEN: Soft. Left lower quadrant tenderness. Bowel sounds plus active. No organomegaly. No guarding. No rigidity. EXTREMITIES: No edema. Peripheral pulse +1. DIGITAL CARTOGRAPHIC TECHNICIAN: Grossly nonfocal. LABORATORY DATA: EKG shows sinus bradycardia, low voltage at [address] of abdomen and pelvis shows acute noncomplicated sigmoid diverticulitis. CT of the brain was done in the emergency room, shows no intracranial abnormality. CBC normal. BMP is normal. ASSESSMENT: 1. Acute sigmoid diverticulitis. 2. Intractable headache with dizziness. 3. History of diabetes mellitus type 2. 4. Peripheral arterial disease. PLAN: Admit the patient to telemetry and p.o. IV fluids normal saline 125 mL/hour. Cipro 400 IV q.12, Flagyl 500 IV q.8 hours. Blood sugar checkup before meals and at bedtime with sliding scale, morphine for severe headache. Case discussed with the patient and granddaughter. Condition and prognosis explained. MD AMBER Boyd/PEARL /[id number]
[2019-01-10] MEDS: CIPROFLOXACIN 400 MG/D5W 200ML 200 ML IV SCH (23:00)
[2019-01-11] VITALS (8 sets, daily range): BP systolic 110–126; BP diastolic 59–69
--- NOTE | 2019-01-11 00:40 | NUR ---
SPOKE WITH MD Edy QUINTANA CONCERNING CONSULTATION. NO NEW ORDERS AT THIS TIME.
[2019-01-11] MEDS: ONDANSETRON HCL INJ 2MG/ML 2ML 2 MG/ML VIAL IV PRN (00:57)
[2019-01-11] MEDS ORDERED: GLIPIZIDE5 MG PO (01:32)
[2019-01-11] MEDS ORDERED: METFORMIN HCL500 MG PO (01:32)
[2019-01-11] MEDS ORDERED: CILOSTAZOL100 MG PO (01:32)
[2019-01-11] MEDS: SODIUM CHLORIDE 0.9% 1000ML 1,000 ML IV SCH ×3 (05:19→23:23)
[2019-01-11] MEDS: METRONIDAZOLE 500MG/NS 100ML 100 ML IV SCH ×3 (05:56→22:45)
[2019-01-11 06:35] LABS: BASOPHILS # (AUTO) 0.1 (0.0-0.1); BASOPHILS % 0.6 % (0.0-1.0); EOSINOPHILS # (AUTO) 0.1 (0.0-0.4); EOSINOPHILS % 1.3 % (0.0-6.0); HEMATOCRIT 39.8 % (34.2-44.1); LYMPHOCYTES # (AUTO) 3.3 (1.0-3.2); LYMPHOCYTES % 36.4 % (18.0-39.1); MEAN CORPUSCULAR HEMOGLOBIN 30.2 pg (28-32); MEAN CORPUSCULAR HGB CONC 32.7 g/dL (31-35); MEAN CORPUSCULAR VOLUME 92.6 fL (81-99); MONOCYTES # (AUTO) 0.6 (0.2-0.8); MONOCYTES % 6.4 % (4.4-11.3); NEUTROPHILS # (AUTO) 4.9 (2.1-6.9); PLATELET COUNT 231 x10e3/uL (140-360); RED CELL DISTRIBUTION WIDTH 13.1 % (11.7-14.4)
[2019-01-11 06:52] LABS: ALANINE AMINOTRANSFERASE 97 IU/L (0-55); ALBUMIN 3.1 g/dL (3.5-5.0); ALKALINE PHOSPHATASE 65 IU/L (40-150); ANION GAP 10.1 mmol/L (8-16); BLOOD UREA NITROGEN 14 mg/dL (7-26); BUN/CREATININE RATIO 19 (6-25); CARBON DIOXIDE 27 mmol/L (22-29); CHLORIDE 107 mmol/L (98-107); CREATININE, SERUM 0.73 mg/dL (0.57-1.11); EST GLOMERULAR FILTRATION RATE > 60 ML/MIN (60-); GLUCOSE 143 mg/dL (74-118); POTASSIUM 4.1 mmol/L (3.5-5.1); SODIUM 140 mmol/L (136-145)
[2019-01-11] MEDS: INSULIN REGULAR, HUMAN 100 UNIT/1 ML 3ML VIAL SQ SCH ×4 (08:30→21:04)
--- NOTE | 2019-01-11 08:37 | NUR ---
MD Alden THOMPSON INTO SEE PT, DISCUSSED POC, ORDERS NOTED TO HOLD HOME MEDICATIONS AT THIS TIME
[2019-01-11] MEDS: CIPROFLOXACIN 400 MG/D5W 200ML 200 ML IV SCH ×2 (09:25→21:04)
[2019-01-11] MEDS: METHYLPREDNISOLONE SOD SUCC 125 MG/2ML VIAL IV SCH ×3 (10:30→11:35)
[2019-01-11] MEDS: PROMETHAZINE 25MG/ NS 50ML (IV) IV SCH ×2 (11:39→18:08)
[2019-01-11] MEDS: VALPROATE SOD INJ 500 MG in SODIUM CHLORIDE 0.9% 100 ML 100 ML IV SCH ×2 (12:14→18:30)
--- NOTE | 2019-01-11 13:38 | Consultation ---
DATE OF CONSULTATION: 01/11/2019 Neurology Consult Note HISTORY OF PRESENT ILLNESS: Ms. Fregoso is a 58-year-old right-hand dominant woman with past medical history significant for diabetes mellitus type 2 and peripheral arterial disease, admitted to [facility] as an inpatient for further evaluation and treatment of severe headache and diverticulitis. A Neurology consultation is requested for recommendations for further evaluation and treatment of headache. Ms. Fregoso describes her headache as follows: The pain is located across the forehead and does not radiate. The pain is described as constant pressure and is rated as 7/10. Associated with the headache are photophobia, phonophobia, nausea with vomiting, and dizziness which is further described as a lightheaded sensation. Ms. Fregoso does not report an aura or visual disturbance associated with the headache. The above-described headache has been present for 3 days. Ms. Fregoso has not experienced similar symptoms previously. The patient does not report a prior history of migraines nor is there a known family history of migraines or other primary headache disorders. In the emergency center, a CT of the brain without contrast was performed. There was no evidence of recent or remote large territorial ischemia, hemorrhage, mass, or mass effect. Other symptoms endorsed by the patient include abdominal pain. REVIEW OF SYSTEMS: Abdominal pain, nausea, vomiting, headache, photophobia, phonophobia, and dizziness. Otherwise, a 12-point review of systems is negative. PAST MEDICAL HISTORY: Diabetes mellitus type 2, peripheral arterial disease. PAST SURGICAL HISTORY: section, procedure for varicose veins. PAST HOSPITALIZATIONS: Surgeries/procedures as listed. FAMILY MEDICAL HISTORY: None reported. SOCIAL HISTORY: Ms. Fregoso is single. She works for a [employer]. The patient does not report current or prior tobacco, alcohol, or recreational drug use. HOME MEDICATIONS: Glipizide 5 mg by mouth twice daily, metformin 1000 mg by mouth twice daily, cilostazol 100 mg by mouth twice daily. HOSPITAL MEDICATIONS: Ciprofloxacin, ibuprofen, insulin human regular, ketorolac, metronidazole, morphine, Zofran, sodium chloride, tramadol. ALLERGIES: NO KNOWN DRUG ALLERGIES. NO KNOWN FOOD ALLERGIES. NO KNOWN ALLERGIES TO LATEX. NO KNOWN ALLERGIES TO IODINE OR OTHER CONTRAST MATERIALS. PHYSICAL EXAMINATION: VITAL SIGNS: Height 61 inches, weight 207 pounds, BMI 39.1 kg/m2, blood pressure 110/59 mmHg, pulse 61 beats per minute, respiratory rate 18 breaths per minute, and oxygen saturation 96% on room air. GENERAL: The patient is awake and alert, does not appear distressed. Morbidly obese. HEENT: Normocephalic, atraumatic. Pupils are equal, round, and reactive to light. Moist mucous membranes. NECK: Supple. No appreciable thyromegaly. No appreciable carotid bruits. CARDIOVASCULAR: S1, S2, regular rate and rhythm. No murmurs, rubs, or gallops. EXTREMITIES: The skin is warm and dry. No clubbing, cyanosis, or edema. The posterior tibial and dorsalis pedis pulses are 1+ and symmetric. SKIN: No rashes or lesions. NEUROLOGIC: Memory/Attention: The patient is awake and alert, oriented to person, place, time, and situation. Cranial Nerves: Cranial nerve I - not tested. Cranial nerve II, III, IV, and - pupils are equal and round, react briskly to light (from 4 mm to 2 mm). Extraocular movements intact. No nystagmus. Cranial nerve V - sensation to light touch is intact in the bilateral V1 through V3 distributions. Strength in the temporalis and masseter muscles is within normal limits. Cranial nerve VII - the face is symmetric as are all facial movements. Strength is within normal limits. Cranial nerve VIII - hearing is intact to finger rub bilaterally. Cranial nerve IX, X - the soft palate elevates equally and symmetrically. Cranial nerve XI - normal strength of the bilateral sternocleidomastoid and trapezius muscles. Cranial nerve XII - the tongue protrudes midline and moves symmetrically from [id number]. Strength: Bulk is normal. There is effort dependent weakness in all muscles examined in both arms and both legs. Strength is grossly 4/5. Tone is normal. DTRs: Deep tendon reflexes are 1+ and symmetric at the triceps, biceps, and brachioradialis. Deep tendon reflexes are trace and symmetric at the patellas. Deep tendon reflexes are absent and symmetric at the Achilles. Plantar responses are flexor bilaterally. Sensation: Sensation is intact to light touch in both arms and both legs. Cerebellar: Ldkuob-wuuo-vyueus and heel-echevarria movements are intact without dysmetria or other impairment. Gait: Deferred. Speech: Spontaneous speech is normal without appreciable dysarthria or aphasia. Repetition is intact. Involuntary movements: None. Pronator Drift: None. LABORATORY DATA: A comprehensive metabolic panel is significant for an elevated serum glucose of 143, elevated AST of 76, elevated ALT of 97, low total protein of 6.1, and low albumin of 3.1. Lipase 29. Troponin I 0.042. The CBC with differential and platelets are unremarkable. DIAGNOSTIC STUDIES: Electrocardiogram on 01/10/2019: Sinus bradycardia at 59 beats per minute with sinus arrhythmia. CT of the brain without contrast on 01/10/2019: On my review, there is no evidence of recent or remote large territorial ischemia, hemorrhage, mass, or mass effect. Cerebral volumes are appropriate for age. There are no findings suggestive of chronic small vessel ischemic disease. CT of the abdomen and pelvis without contrast on 01/10/2019: Mild acute noncomplicated diverticulitis of the sigmoid colon. ASSESSMENT AND PLAN: Ms. Fregoso is a 58-year-old right-hand dominant woman with past medical history as detailed, admitted to [facility] as an inpatient on January 10, 2019, with diverticulitis and a severe headache as described in the history of present illness. Other than effort dependent weakness in the muscles examined in the arms and legs, the patient's neurological examination is nonfocal. Her laboratory data and other diagnostic studies have been reviewed and are documented above. Ms. Fregoso has migraine without aura, not intractable, with status migrainosus. The patient will be treated with intravenous fluids and a combination of medications, which should significantly improve or resolve her headache. 1. Intravenous fluids will be continued, but the rate will be increased to 125 mL/h. 2. Promethazine 25 mg intravenously every 6 hours x2 doses will be prescribed. 3. Methylprednisolone 125 mg intravenously every 6 hours x2 doses will be prescribed. 4. Valproate 500 mg intravenously every 6 hours x2 doses will be prescribed. 5. Defer treatment of the remaining medical comorbidities to the primary and other services following the patient. Thank you for this consultation. I will continue to follow the patient while she remains in the hospital. TIME SPENT: 50 minutes. Miranda Santiago MD CP/PEARL /[id number] [facility]
[2019-01-11] MEDS ORDERED: METHYLPREDNISOLONE SOD SUCC 125 MG/2ML VIAL IV SCH (18:00)
--- NOTE | 2019-01-11 19:04 | NUR ---
WALKING ROUNDS PERFORMED, RECEIVED PT LAYING SUPINE IN BED, AAOX3, RR EVEN AND NON-LABORED, ON ROOM AIR. NO S/SX OF DISTRESS NOTED. LEFT PT LAYING SEMI FOWLERS IN BED, BED IN LOW LOCKED POSITION, SIDE RAILS UPX2, CALL LIGHT AND PHONE WITHIN REACH.
[2019-01-11] MEDS ORDERED: BISACODYL 10 MG SUPP PR ONE (23:45)
[2019-01-12] VITALS (9 sets, daily range): BP systolic 110–153; BP diastolic 57–81
[2019-01-12] MEDS: METRONIDAZOLE 500MG/NS 100ML 100 ML IV SCH ×3 (06:14→22:16)
[2019-01-12] MEDS: SODIUM CHLORIDE 0.9% 1000ML 1,000 ML IV SCH ×2 (06:14→15:23)
[2019-01-12 06:40] LABS: ALANINE AMINOTRANSFERASE 102 IU/L (0-55); ALBUMIN/GLOBULIN RATIO 0.9 (0.8-2.0); ALKALINE PHOSPHATASE 67 IU/L (40-150); ANION GAP 11.6 mmol/L (8-16); BLOOD UREA NITROGEN 11 mg/dL (7-26); BUN/CREATININE RATIO 16 (6-25); CALCIUM 9.4 mg/dL (8.4-10.2); CARBON DIOXIDE 24 mmol/L (22-29); CHLORIDE 108 mmol/L (98-107); CREATININE, SERUM 0.69 mg/dL (0.57-1.11); EST GLOMERULAR FILTRATION RATE > 60 ML/MIN (60-); GLUCOSE 158 mg/dL (74-118); POTASSIUM 3.6 mmol/L (3.5-5.1); SODIUM 140 mmol/L (136-145)
--- NOTE | 2019-01-12 07:19 | NUR ---
Received patient lying in bed with eyes open. Respiration even and unlabored without SOB. Call light in reach. family members at bedside.
[2019-01-12] MEDS: CIPROFLOXACIN 400 MG/D5W 200ML 200 ML IV SCH ×2 (08:00→20:57)
[2019-01-12] MEDS: INSULIN REGULAR, HUMAN 100 UNIT/1 ML 3ML VIAL SQ SCH ×4 (08:05→20:24)
--- NOTE | 2019-01-12 19:01 | NUR ---
Report given to [facility] shift lead. Patient lying in bed with eyes open. Respiration even and unlabored without SOB. Call light in reach. Family member at bedside.
--- NOTE | 2019-01-13 01:30 | NUR ---
IS DOING ROUNDS.RECEIVED NEW ORDERS.MAINTAINING NPO FOR US ABDOMEN.BED LOCKED AND IN LOWEST POSITION.BED ALARM ON.PHONE AND CALL LIGHT WITHIN REACH.INSTRUCTED TO CALL FOR ASSISTANCE NEEDED.
[2019-01-13] MEDS: SODIUM CHLORIDE 0.9% 1000ML 1,000 ML IV SCH ×2 (01:36→07:55)
[2019-01-13 04:00] VITALS: BP 144/79
[2019-01-13] MEDS: METRONIDAZOLE 500MG/NS 100ML 100 ML IV SCH (05:33)
--- NOTE | 2019-01-13 07:00 | NUR ---
BEDSIDE SHIFT REPORT RECEIVED FROM PRINTING AND STAMPING SUPERVISOR RN. PT DENIES NEEDS AT THIS TIME.
--- NOTE | 2019-01-13 07:03 | NUR ---
BEDSIDE SHIFT REPORT GIVEN TO THE ONCOMING RN.WALKING ROUNDS DONE.
[2019-01-13] MEDS: INSULIN REGULAR, HUMAN 100 UNIT/1 ML 3ML VIAL SQ SCH ×2 (07:30→12:16)
[2019-01-13] MEDS: ONDANSETRON HCL INJ 2MG/ML 2ML 2 MG/ML VIAL IV PRN (07:53)
[2019-01-13] MEDS: CIPROFLOXACIN 400 MG/D5W 200ML 200 ML IV SCH (07:56)
[2019-01-13 08:43] VITALS: BP 136/83
--- NOTE | 2019-01-13 09:04 | Diagnostic Imaging Report ---
Right upper quadrant abdominal ultrasound, 01/13/2019. History: Abnormal LFTs. Comparison: CT 01/10/2019. Discussion: Transverse and longitudinal images of the right upper quadrant of the abdomen were obtained demonstrating a liver of increased size and echogenicity measuring 17.7 cm in length. There is no evidence of a focal hepatic mass. The portal vein is patent with hepatopetal flow and is within normal limits measuring 13 mm in diameter. The biliary tree is within normal limits with the common bile duct measuring for mm in diameter. The gallbladder is normal without evidence of wall thickening or pericholecystic fluid. The sonographic Ross's sign was negative. The right kidney is normal in size and echogenicity without evidence of hydronephrosis, stones, or mass and measures 10.2 cm in length. The pancreatic <body and tail> are visualized and are normal in appearance. The abdominal aorta is within normal limits. There is no evidence of free fluid. IMPRESSION: Mild hepatomegaly with diffuse fatty infiltration of the liver, but no focal hepatic abnormality. Otherwise unremarkable exam. Signed by: Wagner Jackson on 01/13/2019 9:00 AM
[2019-01-13 09:58] VITALS: BP 136/83
[2019-01-13 12:22] VITALS: BP 141/78
[2019-01-13] MEDS ORDERED: CIPRO500 MG PO (13:06)
[2019-01-13] MEDS ORDERED: FLAGYL250 MG (13:07)
[2019-01-13] MEDS ORDERED: IMITREX25 MG (13:08)
--- NOTE | 2019-01-14 02:28 | Discharge Summary ---
This is a 58-year-old female, patient of mine, presented to the emergency room with a complaint of abdominal pain, severe headache, and dizziness. ADMITTING DIAGNOSES: Acute diverticulitis; acute status migraine, nonintractable and severe; diabetes mellitus; and hypertension. HOSPITAL COURSE SUMMARY: The patient was admitted with above diagnoses. The patient was treated with IV antibiotics and IV analgesics. The patient had a GI and neurologic consultation were done. The patient was treated with IV Cipro and Flagyl, and morphine was given. Neurology consultation was done and the patient was given IV Solu-Medrol and Topamax. The patient's headache had improved significantly with above treatment and the patient's abdominal pain and the GERD symptoms also improved significantly. Now upon stabilization, the patient will be discharged home on p.o. Cipro and Flagyl. The patient was advised to follow up as an outpatient. MD SINCERE Medeiros/MODKarthik /[id number]
== END 2019-01-13 13:30 | disposition home or self-care (01) | DRG 103 ==
LOC: FSED 12:22 → ERHOLD 14:58 → MED/SURG 19:45
PROVIDERS: ADMIT Internal Medicine; ATTEND Internal Medicine
DX: G43.001 Migraine without aura, not intractable, with status migrainosus (principal); K57.32 Diverticulitis of large intestine without perforation or abscess without bleeding; E11.51 Type 2 diabetes mellitus with diabetic peripheral angiopathy without gangrene; Z79.84 Long term (current) use of oral hypoglycemic drugs; Z68.39 Body mass index [BMI] 39.0-39.9, adult; K59.00 Constipation, unspecified
CPT/HCPCS: 36415; 70450; 74176; 76705; 80053; 81003; 82948; 83690; 84484; 85025; 85651; 93005; 96372; 96374; 96375; 99284; J1817; J1885; J2270; J2405; J2543; J2550; J2930; J7030

== ENCOUNTER 2019-10-23 12:06 | Emergency (ER) | payer OTHER ==
[~2019-10-23] VITALS: Ht 154.9 cm; Wt 93.0 kg
[~2019-10-23 12:06] MED LIST: CILOSTAZOL100 MG PO; CIPRO500 MG PO; FLAGYL250 MG; GLIPIZIDE5 MG PO; IMITREX25 MG; METFORMIN HCL500 MG PO
[2019-10-23] MEDS ORDERED: HYDROCODONE/APAP 5MG-325MG TAB PO ONE (12:45)
--- NOTE | 2019-10-23 13:48 | Diagnostic Imaging Report ---
CT BRAIN WO HISTORY: Headache, left arm tingling COMPARISON: Head CT 01/10/2019 TECHNIQUE: Noncontrast axial scans were obtained from skull base to the vertex. Coronal and sagittal reconstructions obtained from the axial data. One or more of the following dose reduction techniques were used: Automated exposure control, adjustment of the mA and/or kV according to patient size, and/or utilization of iterative reconstruction technique. DISCUSSION: Scalp/Skull: Unremarkable. Brain sulci: Appropriate for patient's age. Ventricles: Normal in size and configuration. No hydrocephalus. Extra-axial spaces: No masses or fluid collections. Parenchyma: No abnormal densities. No mass, hemorrhage, or large vascular territory acute infarct. Dural sinuses: No abnormal densities. Sellar/Suprasellar region: Intact. Skull base: Intact. Incidental findings: None. IMPRESSION: No intracranial abnormalities. No significant change when compared to head CT dated 01/10/2019. Signed by: Dr. Crow Oswald M.D. on 10/23/2019 1:44 PM
--- NOTE | 2019-10-23 14:17 | Emergency Department Note ---
History of Present Illnes History of Present Illness Chief Complaint: COVID PUI History of Present Illness This is a 59 year old female HERE FOR HEADACHE AND LEFT ARM TINGLING FOR 1 WEEK. COVID POSITIVE. WAS TOLD BY PCP TO COME TO ER. Historian: Patient Arrival Mode: Car Pharmaceutical Laboratory Technician Required: No Onset (how long ago): week(s) (1) Location: HEAD AND ALL OVER Quality: ACHES Radiation: Reports non-radiation Severity: moderate Onset quality: gradual Timing of current episode: intermittent Progression: waxing and waning Chronicity: recurrent Context: Reports recent illness Relieving factors: none Exacerbating factors: none Associated symptoms: Reports cough, Reports headaches, Reports weakness Past Medical/Family History Physician Review I have reviewed the patient's past medical and family history. Any updates have been documented here. Past Medical History Recent Fever: Yes Clinical Suspicion of Infectio: Yes New/Unexplained Change in Ment: No Past Medical History: Diabetes Other Medical History: NEUROPATHY Past Surgical History: Other Surgery: Varicose vein surgery to left leg 11/2018 Social History Smoking Cessation: Never Smoker Counseling Performed: No Alcohol Use: None Any Illegal Drug Use: No TB Exposure/Symptoms: No Physically hurt or threatened: No Other Last Tetanus: UTD Any Pre-Existing Lines (PICC,: No Is patient up to date on immun: Yes Last Flu: utd Last Pneumovax: utd Review of Systems Review of Systems Constitutional: Reports as per HPI EENTM: Reports no symptoms Cardiovascular: Reports no symptoms Respiratory: Reports as per HPI Gastrointestinal: Reports no symptoms Genitourinary: Reports no symptoms Musculoskeletal: Reports no symptoms Integumentary: Reports no symptoms Neurological: Reports as per HPI Psychological: Reports no symptoms Endocrine: Reports no symptoms Hematological/Lymphatic: Reports no symptoms Physical Exam Related Data Allergies: Coded Allergies: No Known Allergies (Unverified , 01/09/19) Triage Vital Signs Vital Signs Date Time Temp Pulse Resp B/P (MAP) Pulse Ox O2 Delivery O2 Flow Rate FiO2 10/23/19 12:27 97.9 90 18 128/86 96 Vital signs reviewed: Yes Physical Exam CONSTITUTIONAL Constitutional: Present well-developed, Present well-nourished HENT HENT: Present normocephalic, Present atraumatic, Present oropharynx c lear/moist, Present nose normal HENT L/R: Present left ext ear normal, Present right ext ear normal EYES Eyes: Reports PERRL, Reports conjunctivae normal NECK Neck: Present ROM normal PULMONARY Pulmonary: Present effort normal, Present breath sounds normal CARDIOVASCULAR Cardiovascular: Present regular rhythm, Present heart sounds normal, Present capillary refill normal, Present normal rate GASTROINTESTINAL Abdominal: Present soft, Present nontender, Present bowel sounds normal GENITOURINARY Genitourinary: Present exam deferred SKIN Skin: Present warm, Present dry MUSCULOSKELETAL Musculoskeletal: Present ROM normal NEUROLOGICAL Neurological: Present alert, Present oriented x 3, Present no gross motor or sensory deficits; Absent cranial nerve deficit, Absent sensory deficit, Absent abnormal DTRs, Absent abnormal coordination, Absent abnormal gait, Absent weakness PSYCHOLOGICAL Psychological: Present mood/affect normal, Present judgement normal Results Imaging Imaging results reviewed: Yes Impressions Procedure: [id number] CT/CT BRAIN WO Exam Date: 10/23/19 Exam Time: 1300 REPORT STATUS: Signed CT BRAIN WO HISTORY: Headache, left arm tingling COMPARISON: Head CT 01/10/2019 TECHNIQUE: Noncontrast axial scans were obtained from skull base to the vertex. Coronal and sagittal reconstructions obtained from the axial data. One or more of the following dose reduction techniques were used: Automated exposure control, adjustment of the mA and/or kV according to patient size, and/or utilization of iterative reconstruction technique. DISCUSSION: Scalp/Skull: Unremarkable. Brain sulci: Appropriate for patient's age. Ventricles: Normal in size and configuration. No hydrocephalus. Extra-axial spaces: No masses or fluid collections. Parenchyma: No abnormal densities. No mass, hemorrhage, or large vascular territory acute infarct. Dural sinuses: No abnormal densities. Sellar/Suprasellar region: Intact. Skull base: Intact. Incidental findings: None. IMPRESSION: No intracranial abnormalities. No significant change when compared to head CT dated 01/10/2019. Signed by: Dr. Crow Oswald M.D. on 10/23/2019 1:44 PM Assessment & Plan Medical Decision Making MDM TESTED POS FOR COVID, C/O HEADACHE AND TINGLING IN ARM, NORMAL NEURO EXAM, O2 SAT 97% ON RA - WILL GET CT BRAIN R/O BLEED, CVA BUT PT LOOKS GOOD, LIKELY JUST PAIN FROM COVID Reassessment Reassessment DC HOME, TYLENOL AND ALLEVE DIRECTED, SELF-QUARANTINE, F/U PCP Assessment & Plan Final Impression: (1) COVID-19 (2) Headache Depart Disposition: HOME, SELF-CARE Last Vital Signs Date Time Temp Pulse Resp B/P (MAP) Pulse Ox O2 Delivery O2 Flow Rate FiO2 10/23/19 14:05 75 21 110/80 94 10/23/19 13:39 98.4 Home Meds Reported Medications Sumatriptan Succinate (IMITREX) 25 Mg Tablet, 50 MG Q6H PRN for MIGRAINE 01/13/19 Metronidazole (FLAGYL) 250 Mg Tablet, 500 TID for 7 Days, #21 01/13/19 Ciprofloxacin Hcl (CIPRO) 500 Mg Tablet, 500 MG PO Q12H for 7 Days, #14 TAB 01/13/19 Cilostazol (CILOSTAZOL) 100 Mg Tablet, 100 MG PO BID, #30 TAB BID PC 01/11/19 Glipizide (GLIPIZIDE) 5 Mg Tablet, 5 MG PO BID, TAB 01/11/19 Metformin Hcl (METFORMIN HCL) 500 Mg Tablet, 1000 MG PO BID, #60 TAB 01/11/19 Medications in the ED Acetaminophen/ Hydrocodone Bitart 1 ea ONCE ONCE PO Last administered on 10/23/19at 12:57; Admin Dose 1 EA; Start 10/23/19 at 12:45; Stop 10/23/19 at 12:46; Status DC ANA PAULA ORTEGA MD Oct 23, 2019 14:17
== END 2019-10-23 15:13 | disposition home or self-care (01) ==
LOC: ER 12:06
DX: U07.1 COVID-19 (principal); R51 Headache; R05 Cough; E11.40 Type 2 diabetes mellitus with diabetic neuropathy, unspecified
CPT/HCPCS: 70450; 99284

== ENCOUNTER 2019-11-20 08:17 | Emergency (ER) | payer OTHER ==
[~2019-11-20] VITALS: Ht 154.9 cm; Wt 93.0 kg
--- NOTE | 2019-11-20 08:42 | Emergency Department Note ---
History of Present Illnes History of Present Illness Chief Complaint: Extremity Trauma/Pain History of Present Illness This is a 59 year old female c/o right shoulder pain x 2 weeks and bruising to right upper arm x 5 days states she went to clinic and told she has a torn rotator cuff and needs more imaging and f/u with ortho states she is pain at night when she is sleeping. She has limited ROM on the shoulder. radial pulse/motor/sensory intact seen by Dr Sands . Historian: Patient Arrival Mode: Car Manager Sterile Processing Required: No Onset (how long ago): week(s) Radiation: Reports extremity Severity: moderate Onset quality: gradual Duration (how long): week(s) Progression: worsening Relieving factors: immobilization Exacerbating factors: none, immobilization Associated symptoms: Reports denies other symptoms Treatments prior to arrival: none Past Medical/Family History Physician Review I have reviewed the patient's past medical and family history. Any updates have been documented here. Past Medical History Recent Fever: No Clinical Suspicion of Infectio: No New/Unexplained Change in Ment: No Past Medical History: Diabetes Other Medical History: NEUROPATHY Past Surgical History: Other Surgery: Varicose vein surgery to left leg 11/2018 Social History Smoking Cessation: Never Smoker Any Illegal Drug Use: No TB Exposure/Symptoms: No Physically hurt or threatened: No Family History Family history of heart diseas: No Other Last Tetanus: UTD Any Pre-Existing Lines (PICC,: No Review of Systems Review of Systems Constitutional: Reports no symptoms EENTM: Reports no symptoms Cardiovascular: Reports no symptoms Respiratory: Reports no symptoms Gastrointestinal: Reports no symptoms Genitourinary: Reports no symptoms Musculoskeletal: Reports joint pain, Reports muscle pain Integumentary: Reports change in color, Reports ecchymosis (bruise right UPPER ex and shoulder) Neurological: Reports no symptoms Psychological: Reports no symptoms Endocrine: Reports no symptoms Hematological/Lymphatic: Reports no symptoms Physical Exam Related Data Allergies: Coded Allergies: No Known Allergies (Unverified , 01/09/19) Triage Vital Signs Vital Signs Date Time Temp Pulse Resp B/P (MAP) Pulse Ox O2 Delivery O2 Flow Rate FiO2 11/20/19 08:22 97.7 73 16 167/77 99 Room Air Vital signs reviewed: Yes Physical Exam CONSTITUTIONAL Constitutional: Present well-developed, Present well-nourished HENT HENT: Present normocephalic, Present atraumatic, Present oropharynx clear/moist, Present nose normal HENT L/R: Present left ext ear normal, Present right ext ear normal EYES Eyes: Reports PERRL, Reports conjunctivae normal NECK Neck: Present ROM normal PULMONARY Pulmonary: Present effort normal, Present breath sounds normal CARDIOVASCULAR Cardiovascular: Present regular rhythm, Present heart sounds normal, Present capillary refill normal, Present normal rate GASTROINTESTINAL Abdominal: Present soft, Present nontender, Present bowel sounds normal GENITOURINARY Genitourinary: Present exam deferred SKIN Skin: Present warm, Present dry, Present bruising (fading bruising lateral shoulder, spreading to elbow, pulses, capillary refill and ROM intact distally) MUSCULOSKELETAL Musculoskeletal: Present tenderness, Present other (tender right shoulder, AC joint, limited ROM) NEUROLOGICAL Neurological: Present alert, Present oriented x 3, Present no gross motor or sensory deficits PSYCHOLOGICAL Psychological: Present mood/affect normal, Present judgement normal Assessment & Plan Medical Decision Making MDM no fracture, no vascular compromise, no further NELSON needed emergently. Assessment & Plan Final Impression: (1) Adhesive bursitis of right shoulder (2) Ecchymosis Depart Disposition: HOME, SELF-CARE Last Vital Signs Date Time Temp Pulse Resp B/P (MAP) Pulse Ox O2 Delivery O2 Flow Rate FiO2 11/20/19 08:22 97.7 73 16 167/77 99 Room Air Home Meds Reported Medications Sumatriptan Succinate (IMITREX) 25 Mg Tablet, 50 MG Q6H PRN for MIGRAINE 01/13/19 Metronidazole (FLAGYL) 250 Mg Tablet, 500 TID for 7 Days, #21 01/13/19 Ciprofloxacin Hcl (CIPRO) 500 Mg Tablet, 500 MG PO Q12H for 7 Days, #14 TAB 01/13/19 Cilostazol (CILOSTAZOL) 100 Mg Tablet, 100 MG PO BID, #30 TAB BID PC 01/11/19 Glipizide (GLIPIZIDE) 5 Mg Tablet, 5 MG PO BID, TAB 01/11/19 Metformin Hcl (METFORMIN HCL) 500 Mg Tablet, 1000 MG PO BID, #60 TAB 01/11/19 Medications in the ED tramadol, tyl# 3, José Miguel Physician Attestation Provider Attestation COLLAR RUNNER score 270, low risk ANGELIA SANDS MD Nov 20, 2019 08:42
== END 2019-11-20 08:36 | disposition home or self-care (01) ==
LOC: ER 08:36
DX: M75.01 Adhesive capsulitis of right shoulder (principal); R23.3 Spontaneous ecchymoses; E11.40 Type 2 diabetes mellitus with diabetic neuropathy, unspecified
CPT/HCPCS: 99282

== ENCOUNTER → 2019-12-07 | Outpatient (CLI) | payer OTHER ==
--- NOTE | 2019-12-07 11:24 | Diagnostic Imaging Report ---
EXAMINATION: CERVICAL SPINE 4 OR 5 VIEWS INDICATION: Spondylosis COMPARISON: None FINDINGS: No acute fracture or dislocation. Vertebral body heights are maintained. Alignment is anatomic. Moderate degenerative changes with disc space narrowing and osteophyte formation, most notably at C5-6 and C6-7. Prevertebral soft tissues are normal in thickness. IMPRESSION: No acute osseous injury. Degenerative changes, most notably at C5-6 and C6-7. Signed by: Suman Levin MD on 12/07/2019 11:21 AM
== END ==
LOC: RAD 10:01
PROVIDERS: ATTEND Internal Medicine
DX: M47.812 Spondylosis without myelopathy or radiculopathy, cervical region (principal)
CPT/HCPCS: 72050

== ENCOUNTER 2022-01-12 16:36 | Emergency (ER) | payer OTHER ==
[~2022-01-12] VITALS: Ht 154.9 cm; Wt 93.0 kg
[2022-01-12] MEDS ORDERED: ULTRAM 50MG50 MG PO (19:02)
[2022-01-12] MEDS ORDERED: PREDNISONE20 MG PO (19:02)
[2022-01-12] MEDS ORDERED: FENTANYL CITRATE/PF 100MCG/2 ML INJ IV ONE (19:15)
[2022-01-12] MEDS ORDERED: FENTANYL CITRATE/PF 100MCG/2 ML INJ IJ ONE (19:15)
[2022-01-12] MEDS ORDERED: FENTANYL CITRATE/PF 100MCG/2 ML INJ ONE (19:16)
== END 2022-01-12 20:15 | disposition home or self-care (01) ==
LOC: ER 16:59
DX: M79.605 Pain in left leg (principal); M71.22 Synovial cyst of popliteal space [Baker], left knee; E11.40 Type 2 diabetes mellitus with diabetic neuropathy, unspecified; R21 Rash and other nonspecific skin eruption
CPT/HCPCS: 93971; 99283; J3010